=== PATIENT | female | born 1980 | race Two or more races ===

== ENCOUNTER 2017-04-13 12:24 | Emergency (ER) | payer OTHER ==
[2017-04-13 12:31] VITALS: BP 143/99; PULSE 94; TEMP 98.4; BMI 25.0
--- NOTE | 2017-04-13 12:51 | PDOC ---
History of Present Illness - History of Present Illness Initial Comments: 04/13/17 13:13 The patient is a 36 year old female, A2, with a significant past medical history of miscarriage x2, who presents to the emergency department with vaginal spotting, cramping, and back pain today. The patient reports her last menstrual period was 19 days late. She states she has been trying to get and was under the impression she was now, however, reports noting some light red vaginal spotting today with associated abdominal cramping only after eating and persistent mild low back pain. She states she has been very stressed lately and is worried her stress has caused her to miscarry again. She denies taking an at home test. She reports mild nausea in the morning bu denies emesis. She denies chest pain, shortness of breath, headache and dizziness. She denies fever, chills, nausea, vomit, diarrhea and constipation. She denies dysuria, frequency, urgency and hematuria. Allergies: NKDA <Jacy Chsae - Last Filed: 04/13/17 13:13> - General History Source: Patient Exam Limitations: No Limitations <Karen Nicolas - Last Filed: 04/13/17 14:40> - General Chief Complaint: Vaginal Bleeding Stated Complaint: VAGINAL BLEEDING Time Seen by Provider: 04/13/17 12:51 Past History <Jacy Chase - Last Filed: 04/13/17 13:13> - Past Medical History Asthma: Yes - Surgical History Abdominal Surgery: Yes (UMBILICAL HERNIA) - Reproductive History (#): 3 Para: 2 - Psycho/Social/Smoking Cessation Hx Anxiety: No Suicidal Ideation: No Smoking History: Never smoked Have you smoked in the past 12 months: No Hx Alcohol Use: No Drug/Substance Use Hx: No Substance Use Type: None <Karen Nicolas - Last Filed: 04/13/17 14:40> - Past Medical History Allergies/Adverse Reactions: Allergies Allergy/AdvReac Type Severity Reaction Status Date / Time No Known Allergies Allergy Verified 04/13/17 12:32 Home Medications: Ambulatory Orders NK [No Known Home Medication] 04/14/15 Review of Systems - Review of Systems Able to Perform ROS?: Yes Comments:: 04/13/17 13:14 CONSTITUTIONAL: Absent: fever, no chills, no fatigue EYES: Absent: visual changes ENT: Absent: ear pain, no sore throat CARDIOVASCULAR: Absent: chest pain, no palpitations RESPIRATORY: Absent: cough, no SOB GASTROINTESTINAL: (+) mild abdominal cramp and mild nausea, Absent: no vomiting, no constipation, no diarrhea GENITOURINARY: (+) Vaginal spotting. Absent: dysuria, no frequency, no hematuria MUSCULOSKELETAL: Absent: back pain, no arthralgia, no myalgia SKIN: Absent: rash NEURO: Absent: headache <Jacy Chase - Last Filed: 04/13/17 13:13> *Physical Exam - Vital Signs Last Vital Signs Temp Pulse Resp BP Pulse Ox 98.4 F 94 H 20 143/99 96 04/13/17 12:27 04/13/17 12:27 04/13/17 12:27 04/13/17 12:27 04/13/17 12:27 - Physical Exam Comments: 04/13/17 13:15 GENERAL: The patient is in no acute distress. HEAD: Normal with no signs of trauma. EYES: PERRLA, EOMI, sclera anicteric, conjunctiva clear. ENT: Ears normal, nares patent, oropharynx clear without exudates. Moist mucous membranes. NECK: Normal range of motion, supple without lymphadenopathy, JVD, or masses. LUNGS: Breath sounds equal, clear to auscultation bilaterally. No wheezes, and no crackles. HEART:Regular rate and rhythm, normal S1 and S2 without murmur, rub or gallop. ABDOMEN: Soft, nontender, normoactive bowel sounds. No guarding, no rebound. No masses palpable. EXTREMITIES: Normal range of motion, no edema. No clubbing or cyanosis. No erythema, or tenderness. NEUROLOGICAL: Cranial nerves II through XII grossly intact. Normal speech. No focal neurological deficits. MUSCULOSKELETAL: Back non-tender to palpation, no CVA tenderness SKIN: Warm, Dry, normal turgor, no rashes or lesions noted. <Jacy Chase - Last Filed: 04/13/17 13:13> - Vital Signs Last Vital Signs Temp Pulse Resp BP Pulse Ox 98.4 F 94 H 20 143/99 96 04/13/17 12:27 04/13/17 12:27 04/13/17 12:27 04/13/17 12:27 04/13/17 12:27 <Karen Nicolas - Last Filed: 04/13/17 14:40> Medical Decision Making - Medical Decision Making 04/13/17 12:51 A portion of this note was documented by scribe services under my direction. I have reviewed the details of the note, within reason, and agree with the documentation with the following case summary and management plan written by me. Nursing documentation reviewed and incorporated into medical decision making 04/13/17 14:36 This patient is a 36-year-old presents emergency Department with concerns of and vaginal bleeding. Patient states her last [facility]. Was February 24. She reports that she's been under a lot of stress recently, noted spotting today. No abdominal pain. Patient has lower back pain. Trauma. Patient denies dysuria. She is concerned that she is possibly Urine test neg Will discharged home. Patient asked to monitor herself to see if this is the beginning of her period. If she does not note noticed a period this month, I've asked patient to return to the emergency department for reevaluation or follow up with a [employer] [employer]. Clinical impression: Vaginal bleeding <Karen Nicolas - Last Filed: 04/13/17 14:40> *DC/Admit/Observation/Transfer - Attestations Scribe Attestion: 04/13/17 13:15 Documentation prepared by Jacy Chase, acting as director biomedical engineering for Karen Nicolas MD <Jacy Chase - Last Filed: 04/13/17 13:13> - Discharge Dispostion Admit: No <Karen Nicolas - Last Filed: 04/13/17 14:40> Diagnosis at time of Disposition: Vaginal bleeding - Discharge Dispostion Disposition: HOME Condition at time of disposition: Stable - Referrals Referrals: Rimma Chaudhary MD [Primary Care Provider] - Akilah Crooks MD [Staff Physician] - Josh Galo MD [Staff Physician] - Pee Tubbs MD [Staff Physician] - Shikha Jain MD [Staff Physician] - - Patient Instructions Printed Discharge Instructions: DI for Vaginal Bleeding Additional Instructions: Negative for coming into the emergency department. Please monitor herself to see if this is beginning of your period. If you notice that you do not have a period, please return to emergency department for reassessment. Alternatively you can follow up with a [facility] FOOD SERVER. Monitor yourself for severe abdominal pain, heavy vaginal bleeding (saturating 2 large pads/hour x 2 hours), weakness, dizziness If you have these symptoms, please return to the ER for evaluation - Post Discharge Activity Work/School Note: Back to Work
== END 2017-04-13 14:45 | disposition home or self-care (01) ==
LOC: JER 12:24
DX: N93.9 Abnormal uterine and vaginal bleeding, unspecified (principal); J45.909 Unspecified asthma, uncomplicated
CPT/HCPCS: 84703; 99282-25